=== PATIENT | female | born 1955 | race Caucasian/White ===

== ENCOUNTER 2017-06-29 10:55 | Day surgery (SDC) | payer OTHER ==
[2017-06-10 10:46] VITALS: BMI 24.2
[~2017-06-29] VITALS: Ht 157.5 cm; Wt 60.2 kg
[~2017-06-29 10:55] MED LIST: CEFAZOLIN 2 GM/50 ML (PMX) 50 ML IVPB ONE; SOD CHLORIDE 0.9% 1,000 ML IV ONE
[2017-06-29] MEDS ORDERED: INSU200I SQ (11:16)
[2017-06-29] MEDS ORDERED: LANT3I SC (11:17)
[2017-06-29] MEDS ORDERED: VILA10TA PO (11:21)
[2017-06-29] MEDS ORDERED: SOD CHLORIDE 0.9% 1,000 ML IV SCH (11:30)
[2017-06-29] MEDS ORDERED: CEFAZOLIN 2 GM/50 ML (PMX) 50 ML IVPB ONE (11:30)
[2017-06-29 11:33] VITALS: Ht 157.5 cm; Wt 60.2 kg
[2017-06-29 11:42] VITALS: BP 112/57; PULSE 67; RESP 16
== END 2017-06-29 13:10 | disposition home or self-care (01) ==
LOC: SDS 10:55
PROVIDERS: ATTEND Surgery
DX: R22.9 Localized swelling, mass and lump, unspecified (principal); Z53.8 Procedure and treatment not carried out for other reasons; E11.9 Type 2 diabetes mellitus without complications; M19.90 Unspecified osteoarthritis, unspecified site
CPT/HCPCS: 82962; J0690; J7030

== ENCOUNTER 2017-07-21 10:41 | Day surgery (SDC) | payer OTHER ==
[2017-07-21] VITALS (10 sets, daily range): BP systolic 114–141; BP diastolic 51–68; PULSE 64–87; RESP 12–24; Ht 157.5 cm; Wt 61.0 kg
[~2017-07-21] VITALS: Ht 157.5 cm; Wt 61.0 kg
[~2017-07-21 10:41] MED LIST changes: +BUPIVACAINE 0.25% (MPF) 30 ML INJ INJ ONE; -CEFAZOLIN 2 GM/50 ML (PMX) 50 ML IVPB ONE; +INSU200I SQ; +LANT3I SC; -SOD CHLORIDE 0.9% 1,000 ML IV ONE; +VILA10TA PO
[2017-07-21] MEDS ORDERED: SOD CHLORIDE 0.9% 1,000 ML IV ONE (12:00)
[2017-07-21] MEDS ORDERED: CEFAZOLIN 2 GM/50 ML (PMX) 50 ML IVPB ONE (12:00)
[2017-07-21] MEDS ORDERED: ROCURONIUM 50 MG INJ ONE (13:00)
[2017-07-21] MEDS ORDERED: NEOSTIGMINE 3 MG/3 ML SYRINGE ONE (13:00)
[2017-07-21] MEDS ORDERED: PROPOFOL 20 ML ONE (13:00)
[2017-07-21] MEDS ORDERED: CEFAZOLIN 1 GM INJ ONE (13:00)
[2017-07-21] MEDS ORDERED: GLYCOPYRROLATE 0.4 MG INJ ONE (13:00)
[2017-07-21] MEDS ORDERED: DEXAMETHASONE 4 MG/ML 1 ML INJ ONE (13:01)
[2017-07-21] MEDS ORDERED: MIDAZOLAM 1 MG/ML 2 ML INJ ONE (13:01)
[2017-07-21] MEDS ORDERED: FENTAnyl 50 MCG/ML VIAL ONE (13:01)
[2017-07-21] MEDS ORDERED: ONDANSETRON 4 MG INJ ONE (13:01)
[2017-07-21] MEDS ORDERED: LIDOCAINE 2% (MDV) 20 ML INJ ONE (13:16)
[2017-07-21] MEDS ORDERED: BUPIVACAINE 0.5% (SDV) 30 ML INJ ONE (13:16)
[2017-07-21] MEDS ORDERED: FENTAnyl 50 MCG/ML VIAL IV PRN ×3 (13:30)
[2017-07-21] MEDS ORDERED: IPRATROPIUM (NEB) 0.5 MG/2.5 ML AMP HHN PRN (13:30)
[2017-07-21] MEDS ORDERED: TRIMETHOBENZAMIDE 100 MG/ML VIAL IM PRN (13:30)
[2017-07-21] MEDS ORDERED: hydrALAzine 20 MG INJ IV PRN (13:30)
[2017-07-21] MEDS ORDERED: HYDROmorphONE (0.2 MG/ML) 10ML SYG IV PRN ×3 (13:30)
[2017-07-21] MEDS ORDERED: ALBUTEROL 0.083% (NEB) 2.5 MG/3 ML AMP HHN PRN (13:30)
[2017-07-21] MEDS ORDERED: DIPHENHYDRAMINE 50 MG INJ IV PRN (13:30)
[2017-07-21] MEDS ORDERED: OXYCODONE/ACETAMINOPHEN (5/325) TAB PO PRN ×2 (13:30)
[2017-07-21] MEDS ORDERED: MIDAZOLAM 1 MG/ML 2 ML INJ IV PRN (13:30)
[2017-07-21] MEDS ORDERED: ONDANSETRON 4 MG INJ IV PRN (13:30)
[2017-07-21] MEDS ORDERED: EPHEDrine SULFATE 50 MG/5 ML SYG IV PRN (13:30)
[2017-07-21] MEDS ORDERED: LABETALOL HCL 20MG INJ IV PRN (13:30)
[2017-07-21] MEDS ORDERED: MEPERIDINE 25 MG INJ IV PRN (13:30)
--- NOTE | 2017-07-21 14:10 | OPR ---
Date/Time of Note Date/Time of Note DATE: 07/21/17 TIME: 14:09 Operative Report Procedure Date: Jul 21, 2017 Preoperative Diagnosis left groin mass Postoperative Diagnosis same Operation/Procedure Performed 1. excision of left groin mass 7 cm mass 3 cm incision 2. localized adjacent tissue transfer with the use of skin flaps 6 sq cm defect 3. therapeutic injection of subcutaneous local anesthesia Surgeon see signature line Endoscopy Registered Nurse none Anesthesia Type: general Estimated Blood Loss: 0 - 10 ml's Transfusion none Specimen left groin mass Grafts/Implants none Complications none Pt Condition Post Procedure: stable Indications This is a 62-year-old female with a left groin mass. She requests surgical excision. Risks alternatives benefits and percent were discussed with the patient. Patient's best understanding consents to the operation. Procedure Description Patient taken to the OR prepped and draped in usual sterile fashion. Surgical timeout was performed. IV antibiotics were given. Elliptical incision is made with a 15 blade circumference around the left groin mass. Dissection cautery was carried to the mass and circumferential excise. Due to tissue defect localized adjacent tissue transfer with these of skin flaps was performed. Multilayer closure with interrupted 3-0 Vicryl and running 4-0 Monocryl. There appears to contains local anesthesia injected throughout the incision site dry dressings were applied. Adeline BOYER Jul 21, 2017 14:10
[2017-07-21] MEDS ORDERED: HYDROCODONE/APAP (5/325) TAB PO ONE (14:30)
== END 2017-07-21 15:35 | disposition home or self-care (01) ==
LOC: SDS 10:41
PROVIDERS: ATTEND Surgery
DX: D17.1 Benign lipomatous neoplasm of skin and subcutaneous tissue of trunk (principal); E11.9 Type 2 diabetes mellitus without complications; F41.9 Anxiety disorder, unspecified
CPT/HCPCS: 14000; 80053; 82962; 85025; 85610; 85730; 88307; J0690; J1100; J2250; J2405; J3010; Z7512; Z7610; J2710

== ENCOUNTER 2017-09-12 13:07 | Day surgery (SDC) | payer OTHER ==
[~2017-09-12] VITALS: Ht 157.5 cm; Wt 61.5 kg
[~2017-09-12 13:07] MED LIST changes: -BUPIVACAINE 0.25% (MPF) 30 ML INJ INJ ONE
[2017-09-12 13:40] VITALS: Ht 157.5 cm; Wt 61.5 kg
[2017-09-12 14:38] VITALS: BP 148/71; PULSE 72; RESP 19
[2017-09-12] MEDS ORDERED: MIDAZOLAM 1 MG/ML 2 ML INJ ONE ×3 (15:11)
[2017-09-12] MEDS ORDERED: FENTAnyl 50 MCG/ML VIAL ONE (15:11)
--- NOTE | 2017-09-12 15:14 | OPPN ---
Date/Time of Note Date/Time of Note DATE: 09/12/17 TIME: 15:10 Proc Note GI Procedure Date 09/12/17 Indication: other (CRC screening) Pre-procedure Diagnosis CRC screening Post-procedure Diagnosis Impression: 6mm sessile polyp distal sigmoid colon. Ablated. Moderate size internal hemorrhoids Otherwise normal colonoscopy. Plan: Follow up as scheduled] High fiber diet Annual hemoccult stool testing [Review pathology] [Surveillance colonoscopy in 5 years] . Procedure Performed: Colonoscopy (Plus ablation) Surgeon ROCK CASTILLO MD See signature line Mines Inspector none Anesthesia Type: moderate sedation (Versed 6 mg/fentanyl 75 mcg) Tourniquet Time none EBL none Transfusion required none Biopsy 1: None Polyp 1: Distal sigmoid polyp Grafts/Implants none Tubes/Drains none Complication(s) none Disposition: home Procedure Description After informed consent, with the patient/relatives understanding the procedure, its indications and potential risks and complications, including but not limited to: Allergic reaction, bleeding, perforation, infection, and after all pertinent questions were answered to the patient's satisfaction, the patient/ relatives signed the witnessed informed consent. Following this, premedication was administered slowly IV push under careful cardiovascular and respiratory monitoring with pulse OXIM[employer]RY, automatic blood pressure, and metal treater. Once the sedative effect was achieved, the patient was placed in the left lateral decubitus position, digital rectal examination was performed. The colonoscope was then introduced and advanced under visual control throughout all segments of the colon including: the rectum, sigmoid, descending colon, splenic flexure, transverse colon, hepatic flexure, ascending colon and finally reaching the cecum which was clearly identified by transillumination, finger indentation and the ileocecal valve. Careful examination of the mucosa of the lower gastrointestinal tract both on insertion as well as withdrawal of the instrument disclosed the following findings: PREPARATION QUALITY: [Adequate], RECTAL EXAM: The anorectal area was visualized examined and digital rectal examination performed with the following findings: No evidence of perirectal disease, no masses. COLONIC MUCOSA: The mucosa of all segments of the colon was carefully examined and showed the following findings: There is a 6 mm sessile polyp in distal sigmoid colon. Ablated with biopsy forceps. Moderate-sized internal hemorrhoids. Otherwise the examined mucosa appears within normal limits. There is no evidence of inflammatory changes, diverticular formation, other polyps or neoplasms, vascular malformation, or any other abnormality. The instrument was then withdrawn, the patient tolerated the procedure well and was transferred out of the Endoscopy Suite awake and in good condition to continue recovery under observation. Copies To: CC: ROCK CASTILLO MD, MORDO MD Sep 12, 2017 15:14
== END 2017-09-12 20:58 | disposition home or self-care (01) ==
LOC: GIL 13:07
PROVIDERS: ATTEND Internal Medicine Gastroenterology
DX: Z12.11 Encounter for screening for malignant neoplasm of colon (principal); D12.5 Benign neoplasm of sigmoid colon; K64.8 Other hemorrhoids; E11.9 Type 2 diabetes mellitus without complications
CPT/HCPCS: 45380; 82962; 88305; J2250; J3010; Z7610